=== PATIENT | female | born 1975 | race Caucasian/White ===

== ENCOUNTER 2016-05-22 | Emergency (ER) | payer OTHER | END 2016-05-22 20:00 | disposition left against medical advice (07) | DX: Z53.21 Procedure and treatment not carried out due to patient leaving prior to being seen by health care provider (principal) ==

== ENCOUNTER 2016-05-22 20:54 | Emergency (ER) | payer OTHER ==
[2016-05-22 23:03] LABS: HEMOGLOBIN 14.3 gm/dl (12.3-15.3); RED BLOOD COUNT 4.35 M/UL (4.00-5.10)
[2016-05-22 23:14] LABS: BUN/CREATININE RATIO 23 (0-10)
== END 2016-05-23 04:17 | disposition home or self-care (01) ==
LOC: ER1 20:54
PROVIDERS: Student in an Organized Health Care Education/Training Program
DX: S32.029A Unspecified fracture of second lumbar vertebra, initial encounter for closed fracture (principal); S32.039A Unspecified fracture of third lumbar vertebra, initial encounter for closed fracture; S22.059A Unspecified fracture of T5-T6 vertebra, initial encounter for closed fracture; S22.069A Unspecified fracture of T7-T8 vertebra, initial encounter for closed fracture; R10.13 Epigastric pain; J44.9 Chronic obstructive pulmonary disease, unspecified; F17.210 Nicotine dependence, cigarettes, uncomplicated; Z88.1 Allergy status to other antibiotic agents; Z79.82 Long term (current) use of aspirin; Z79.899 Other long term (current) drug therapy; W18.30XA Fall on same level, unspecified, initial encounter
CPT/HCPCS: 36415; 72070; 72100; 72128; 72131; 73502; 80053; 81001; 83690; 85025; 96372; 99284; J2270; J3360

== ENCOUNTER 2016-05-23 04:40 | Emergency (ER) | payer OTHER | END 2016-05-23 11:30 | disposition home or self-care (01) | LOC: ER1 04:40 | DX: R07.9 Chest pain, unspecified (principal); R51 Headache; M54.9 Dorsalgia, unspecified; F17.210 Nicotine dependence, cigarettes, uncomplicated; Z88.1 Allergy status to other antibiotic agents; Z79.82 Long term (current) use of aspirin | CPT/HCPCS: 36415; 71020; 82550; 82553; 83874; 84484; 93005; 99285 ==

== ENCOUNTER 2020-06-22 21:08 | Emergency (ER) | payer OTHER ==
[~2020-06-22 21:08] MED LIST: CYCLOBENZAPRINE10 MG PO; IBUPROFEN600 MG PO; TRAMADOL HCL50 MG PO; ZANAFLEX4 MG PO
[2020-06-23 01:37] LABS: HEMOGLOBIN 14.5 gm/dl (12.3-15.3); RED BLOOD COUNT 4.41 M/UL (4.00-5.10); WHITE BLOOD COUNT 13.7 K/UL (4.5-11.0)
[2020-06-23 02:03] LABS: BUN/CREATININE RATIO 11 (0-10)
[2020-06-23] MEDS ORDERED: ZITHROMAX250 MG PO (06:12)
== END 2020-06-23 06:21 | disposition home or self-care (01) ==
LOC: ER1 21:08
PROVIDERS: Family Medicine
DX: R04.2 Hemoptysis (principal); J44.9 Chronic obstructive pulmonary disease, unspecified; F17.210 Nicotine dependence, cigarettes, uncomplicated; Z88.1 Allergy status to other antibiotic agents; Z88.6 Allergy status to analgesic agent; Z88.8 Allergy status to other drugs, medicaments and biological substances
CPT/HCPCS: 71046; 80053; 82550; 82553; 83874; 84484; 85025; 85379; 85610; 93005; 99284; Q9967

== ENCOUNTER → 2020-07-21 | Outpatient (CLI) | payer OTHER ==
[~2020-07-21] MED LIST changes: +CYCLOBENZAPRINE5 MG PO; +MOBIC15 MG PO; +ZITHROMAX250 MG PO
== END ==
LOC: HEART 5 11:40
DX: J44.9 Chronic obstructive pulmonary disease, unspecified (principal); F41.9 Anxiety disorder, unspecified; M19.90 Unspecified osteoarthritis, unspecified site
CPT/HCPCS: 94010

== ENCOUNTER 2020-07-22 17:25 | Emergency (ER) | payer OTHER ==
[~2020-07-22 17:25] MED LIST changes: -CYCLOBENZAPRINE5 MG PO; -MOBIC15 MG PO
[2020-07-22] MEDS ORDERED: CYCLOBENZAPRINE5 MG PO (22:17)
[2020-07-22] MEDS ORDERED: MOBIC15 MG PO (22:17)
== END 2020-07-22 22:27 | disposition home or self-care (01) ==
LOC: ER1 17:25
DX: S39.012A Strain of muscle, fascia and tendon of lower back, initial encounter (principal); S16.1XXA Strain of muscle, fascia and tendon at neck level, initial encounter; S29.012A Strain of muscle and tendon of back wall of thorax, initial encounter; S80.01XA Contusion of right knee, initial encounter; R05 Cough; J44.9 Chronic obstructive pulmonary disease, unspecified; Z86.73 Personal history of transient ischemic attack (TIA), and cerebral infarction without residual deficits; Z90.710 Acquired absence of both cervix and uterus; Z88.6 Allergy status to analgesic agent; Z79.01 Long term (current) use of anticoagulants; F17.200 Nicotine dependence, unspecified, uncomplicated; W00.0XXA Fall on same level due to ice and snow, initial encounter; Y92.009 Unspecified place in unspecified non-institutional (private) residence as the place of occurrence of the external cause; Z87.81 Personal history of (healed) traumatic fracture
CPT/HCPCS: 71045; 72125; 72128; 72131; 73562; 99284

== ENCOUNTER 2021-07-09 16:21 | Emergency (ER) | payer OTHER ==
[~2021-07-09] VITALS: Ht 160 cm; Wt 51.7 kg
[~2021-07-09 16:21] MED LIST changes: +CYCLOBENZAPRINE5 MG PO; +MOBIC15 MG PO
[2021-07-09 17:30] LABS: HEMOGLOBIN 15.9 gm/dl (12.3-15.3); RED BLOOD COUNT 4.83 M/UL (4.00-5.10); WHITE BLOOD COUNT 13.3 K/UL (4.5-11.0)
[2021-07-09 17:54] LABS: BUN/CREATININE RATIO 12 (0-10)
[2021-07-10 04:48] LABS: WHITE BLOOD COUNT 12.3 K/UL (4.5-11.0)
[2021-07-10 04:53] LABS: HEMOGLOBIN 13.8 gm/dl (12.3-15.3); RED BLOOD COUNT 4.31 M/UL (4.00-5.10)
[2021-07-10 05:14] LABS: BUN/CREATININE RATIO 11 (0-10)
== END 2021-07-10 18:55 | disposition short-term general hospital (02) ==
LOC: ER1 16:21
PROVIDERS: Emergency Medicine; Internal Medicine
DX: R56.9 Unspecified convulsions (principal); M79.605 Pain in left leg; I10 Essential (primary) hypertension; R29.898 Other symptoms and signs involving the musculoskeletal system; J45.909 Unspecified asthma, uncomplicated; F17.200 Nicotine dependence, unspecified, uncomplicated; Z86.73 Personal history of transient ischemic attack (TIA), and cerebral infarction without residual deficits
CPT/HCPCS: 70450; 70496; 70498; 71045; 72131; 80053; 80307; 81001; 82550; 82553; 84484; 85025; 85027; 93005; 96372; 96374; 96375; 99285; J1650; J1885; J1953; J7030; Q9967

== ENCOUNTER 2021-10-11 21:57 | Emergency (ER) | payer OTHER ==
[2021-10-11 23:31] LABS: HEMOGLOBIN 13.2 gm/dl (12.3-15.3); RED BLOOD COUNT 4.01 M/UL (4.00-5.10); WHITE BLOOD COUNT 14.9 K/UL (4.5-11.0)
[2021-10-11 23:56] LABS: BUN/CREATININE RATIO 7 (0-10)
== END 2021-10-12 03:05 | disposition home or self-care (01) ==
LOC: ER1 21:57
PROVIDERS: Family Medicine
DX: R56.9 Unspecified convulsions (principal); E87.6 Hypokalemia; R11.0 Nausea; F41.9 Anxiety disorder, unspecified; F17.200 Nicotine dependence, unspecified, uncomplicated; Z88.5 Allergy status to narcotic agent; Z88.0 Allergy status to penicillin
CPT/HCPCS: 70450; 80053; 82550; 82553; 83735; 84439; 84443; 84484; 85025; 99285; G0480